=== PATIENT | male | born 1965 | race Caucasian/White ===

== ENCOUNTER 2017-01-03 11:04 | Emergency (ER) | payer MEDICAID ==
[~2017-01-03] VITALS: Ht 170.2 cm; Wt 86.6 kg
[~2017-01-03 11:04] MED LIST: GLU500 PO; IBUPROFEN400 MG PO; PRI20 PO; REM15 PO; ZES10 PO; ZOCOR20 MG PO; ZOLOFT50 MG PO
[2017-01-03 13:34] VITALS: BP 128/72
== END 2017-01-03 13:34 | disposition home or self-care (01) ==
LOC: ED 11:04
DX: L50.9 Urticaria, unspecified (principal)
CPT/HCPCS: J1200; J7512

== ENCOUNTER 2017-04-11 08:45 | Emergency (ER) | payer MEDICAID ==
[~2017-04-11] VITALS: Ht 167.6 cm; Wt 82.2 kg
[2017-04-11 10:53] VITALS: BP 133/97
== END 2017-04-11 10:53 | disposition home or self-care (01) ==
LOC: ED 08:45
DX: F41.9 Anxiety disorder, unspecified (principal); F32.9 Major depressive disorder, single episode, unspecified; I10 Essential (primary) hypertension; E11.9 Type 2 diabetes mellitus without complications; Z79.84 Long term (current) use of oral hypoglycemic drugs; Z86.79 Personal history of other diseases of the circulatory system

== ENCOUNTER 2017-06-22 10:17 | Emergency (ER) | payer MEDICAID ==
[~2017-06-22] VITALS: Ht 175.3 cm; Wt 84.4 kg
[2017-06-22 11:15] LABS: BASOPHIL % 0.5 % (0-2); PLATELET COUNT 227 x10^3mcL (130-400); RED CELL DISTRIBUTION WIDTH 13.2 % (11.5-14.5)
[2017-06-22 11:27] LABS: CARBON DIOXIDE 30.6 mmol/L (21-32); CHLORIDE SERUM 100 mmol/L (98-107); CREATININE SERUM 1.3 mg/dL (0.7-1.3); GFR1 > 60 mL/min; GLUCOSE SERUM 183 mg/dL (74-106); POTASSIUM SERUM 4.6 mmol/L (3.5-5.1); SODIUM SERUM 136 mmol/L (136-145)
[2017-06-22 11:32] LABS: ALBUMIN 3.6 g/dL (3.4-5.0); ALKALINE PHOSPHATASE 93 U/L (46-116); ALT/SGPT 33 U/L (16-63); AST/SGOT 13 U/L (15-37); BILIRUBIN TOTAL 0.98 mg/dL (0.20-1.00); TOTAL PROTEIN, SERUM 7.5 g/dL (6.4-8.2)
[2017-06-22 16:25] VITALS: BP 149/67
== END 2017-06-22 16:25 | disposition short-term general hospital (02) ==
LOC: ED 10:17
PROVIDERS: Emergency Medicine
DX: G51.0 Bell's palsy (principal); E11.9 Type 2 diabetes mellitus without complications; I10 Essential (primary) hypertension; Z85.841 Personal history of malignant neoplasm of brain; E78.00 Pure hypercholesterolemia, unspecified
CPT/HCPCS: 36415; Q0092

== ENCOUNTER 2017-12-06 22:43 | Emergency (ER) | payer MEDICAID ==
[~2017-12-06] VITALS: Ht 172.7 cm; Wt 101.2 kg
[2017-12-06 22:47] VITALS: Ht 172.7 cm; Wt 101.2 kg
[2017-12-07 01:59] VITALS: BP 133/102
== END 2017-12-07 01:59 | disposition home or self-care (01) ==
LOC: ED 22:43
DX: L50.0 Allergic urticaria (principal); I10 Essential (primary) hypertension; E11.9 Type 2 diabetes mellitus without complications; E78.00 Pure hypercholesterolemia, unspecified
CPT/HCPCS: J7512; Q0163

== ENCOUNTER 2017-12-07 15:42 | Emergency (ER) | payer MEDICAID ==
[~2017-12-07] VITALS: Ht 172.7 cm; Wt 89.8 kg
[2017-12-07 15:46] VITALS: Ht 172.7 cm; Wt 89.8 kg
[2017-12-07 19:23] VITALS: BP 126/97
== END 2017-12-07 19:24 | disposition home or self-care (01) ==
LOC: ED 15:42
DX: T78.1XXA Other adverse food reactions, not elsewhere classified, initial encounter (principal); L50.9 Urticaria, unspecified; I10 Essential (primary) hypertension; X58.XXXA Exposure to other specified factors, initial encounter; E78.00 Pure hypercholesterolemia, unspecified; E11.9 Type 2 diabetes mellitus without complications
CPT/HCPCS: J1200; J7512

== ENCOUNTER 2019-07-18 00:01 | Emergency (ER) | payer MEDICAID ==
[~2019-07-18] VITALS: Ht 172.7 cm; Wt 89.8 kg
[2019-07-18 00:21] VITALS: Ht 172.7 cm; Wt 89.8 kg
[2019-07-18 01:03] LABS: BASOPHIL % 0.5 % (0-2); PLATELET COUNT 237 x10^3mcL (130-400); RED CELL DISTRIBUTION WIDTH 13.9 % (11.5-14.5)
[2019-07-18 01:08] LABS: CALCIUM 9.3 mg/dL (8.5-10.1); CARBON DIOXIDE 26.9 mmol/L (21-32); CREATININE SERUM 1.5 mg/dL (0.7-1.3); POTASSIUM SERUM 4.1 mmol/L (3.5-5.1)
[2019-07-18 01:13] LABS: ALBUMIN 3.9 g/dL (3.4-5.0); BILIRUBIN TOTAL 1.08 mg/dL (0.20-1.00); TOTAL PROTEIN, SERUM 7.2 g/dL (6.4-8.2)
[2019-07-18 05:06] VITALS: BP 112/81
== END 2019-07-18 05:06 | disposition home or self-care (01) ==
LOC: ED 00:01
PROVIDERS: Emergency Medicine
DX: R10.816 Epigastric abdominal tenderness (principal); I10 Essential (primary) hypertension; E11.9 Type 2 diabetes mellitus without complications; E78.00 Pure hypercholesterolemia, unspecified
CPT/HCPCS: J1885

== ENCOUNTER 2020-10-24 15:33 | Emergency (ER) | payer MEDICAID ==
[~2020-10-24] VITALS: Ht 170.2 cm; Wt 88.0 kg
[2020-10-24 15:41] VITALS: BP 172/122; Ht 170.2 cm; Wt 88.0 kg
== END 2020-10-24 18:37 | disposition home or self-care (01) ==
LOC: ED 15:33
DX: S61.012A Laceration without foreign body of left thumb without damage to nail, initial encounter (principal)
CPT/HCPCS: A4570; J2001